=== PATIENT | male | born 1955 | race Caucasian/White ===

== ENCOUNTER 2024-01-20 07:21 | Day surgery (SDC) | payer OTHER ==
[2024-01-19 09:27] LABS: Absolute Eosinophils 0.3 K/uL (0-0.5); Absolute Lymphocytes (CBC) 1.1 K/uL (0.7-4.9); Absolute Monocytes 0.4 K/uL (0.1-1.3); Absolute Neutrophil 3.6 K/uL (1.8-8.0); Basophils % 0.8 % (0-1.3); Eosinophils % 4.8 % (0-4.4); Hemoglobin 13.4 g/dL (13.6-17.9); Lymphocytes % 19.7 % (15.3-44.8); MCH 32.1 pg (27.0-35.0); MCHC 34.2 g/dL (32.0-36.0); MCV 93.8 fL (80-100); MPV 8.3 fL (7.6-11.3); Neutrophils % 66.7 % (41.7-73.7); Nucleated Red Blood Cells % 0.1 % (0-0); Platelets 162 thou/uL (152-406); RBC Red Blood Cell Count 4.16 M/uL (4.33-5.43); Red Cell Distribution Width 14.3 % (12.1-15.2)
[2024-01-19 09:34] LABS: Anion Gap 7.9 mEq/L (5.0-15.0); Potassium 3.9 mEq/L (3.5-5.1)
--- NOTE | 2024-01-19 12:58 | RAD REPORT ---
EXAM DESCRIPTION: RAD - Chest Pa And Lat (2 Views) - 01/19/2024 9:20 am CLINICAL HISTORY: Pre op pending hernia repairs. Hypertension COMPARISON: No comparisons TECHNIQUE: PA and lateral views of the chest were obtained. FINDINGS: The lungs are clear. Heart size is normal and central vasculature is within normal limits. No pleural effusion or pneumothorax seen. No acute bony finding noted. IMPRESSION: No acute cardiopulmonary process.
[2024-01-20] MEDS: Ringers Lactate 1,000 ML IV ONE (07:40)
[2024-01-20] MEDS ORDERED: propofoL 200 MG/20 ML VIAL IV ONE (07:53)
[2024-01-20] MEDS ORDERED: MIDAZOLAM HCL 2 MG/2 ML INJ ONE (07:53)
[2024-01-20] MEDS ORDERED: dexAMETHasone 4 MG/ML VIAL ONE (07:53)
[2024-01-20] MEDS ORDERED: ONDANSETRON 4 MG/2 ML VIAL ONE (07:53)
[2024-01-20] MEDS ORDERED: LIDOCAINE 1% MPF 5 ML VIAL ONE (07:53)
[2024-01-20] MEDS ORDERED: FENTANYL CITR 100 MCG/2 ML ONE (07:54)
[2024-01-20] MEDS ORDERED: ROCURONIUM 50 MG/5 ML VIAL IV ONE (07:55)
[2024-01-20] MEDS: CEFAZOLIN SODIUM 1 GM/VIAL ONE (08:36)
[2024-01-20] MEDS ORDERED: EPHEDRINE SULF 50 MG/ML VIAL ONE (09:36)
[2024-01-20] MEDS ORDERED: NEOSTIGMINE 1 MG/ML -10 ML VIAL ONE (09:55)
[2024-01-20] MEDS ORDERED: GLYCOPYRROLATE 0.2 MG/ML SYR ONE (09:55)
--- NOTE | 2024-01-20 10:21 | P.BOP ---
Preoperative diagnosis: tender incarcerated bilateral inguinal hernias Postoperative diagnosis: same Primary procedure: 1. Open repair of Right inguinal hernia with mesh Secondary procedure: 2. Open repair of Left inguinal hernia with mesh Estimated blood loss: <10cc Specimen: hernia content Findings: as above Anesthesia: General Complications: None Implants: plug and sheet mesh large R amd medium L Transferred to: Recovery Room Condition: Good
[2024-01-20 10:37] VITALS: TEMP 97
[2024-01-20 11:13] VITALS: O2SAT 99
[2024-01-20] MEDS: CODEINE 30MG/APAP 300MG TAB ONE (11:48)
[2024-01-20] MEDS: TAMSULOSIN 0.4 MG SR CAP ONE (11:48)
[2024-01-20 13:34] VITALS: BP 126/72
--- NOTE | 2024-01-20 22:08 | OP ---
Date of Procedure: 01/20/2024 Surgeon: Rikki Perry MD Preoperative Diagnosis: Tender bilateral incarcerated inguinal hernias. Postoperative Diagnosis: Tender bilateral incarcerated inguinal hernias. Procedure: Open repair of right and left inguinal hernias with mesh. Anesthesia: General plus local. Estimated Blood Loss: Less than 10 cc. Specimen: Hernia content. Implant: A plug and sheet mesh, large on the right side, medium on the left side. Indications: This is the case of a 68-year-old patient with multiple abdominal surgeries, comes to [facility] with bilateral incarcerated inguinal hernias. We discussed with him different options after seeing all his previous surgeries and all his abdominal incisions. We decided it was little bit safer and convenient to do an open bilateral inguinal hernias. The benefits, alternatives, and risks were full y explained, which include, but not limited to infection, bleeding, damage to adjacent structures, an esthesia complication, recurrence, CA, and even . He also understands this may not relieve symp toms. He might need more than one surgical intervention. He also understands we may use mesh in myles t region, so pros and cons of mesh use were discussed with the patient. All the questions answered t o his satisfaction. He signed a consent. Description Of Procedure: The patient was brought to the operating room, placed in supine position. Anesthesia was without complication. Abdomen and inguinal regions were prepped and draped in the [facility] sterile fashion. A time-out was called. Local anesthesia was applied followed by sharp incision of the skin. Left side first incision was carried down to Maria C fascia until we found external obl ique aponeurosis and that was opened in the direction of the fibers. The ilioinguinal nerve, iliohyp ogastric nerve were identified and protected behind external oblique aponeurosis. [place] was placed around the spermatic cord. The hernia sac was identified. The lipoma of the cord was identified. The spermatic cord structures were skeletonized and protected. The lipoma of the cord was then ligat ed with 3-0 chromic. Hernia sac was imbricated and secured in place with a mesh plug, secured in shari ce with VersaTack. The mesh sheet was placed in the floor of the canal, securing that area secured t o the pubic tubercle, shelving edge of inguinal ligament and transversalis fascia and the tails of th at looped around the spermatic cord without strangulation. Area was inspected. No bleeding. At myles t moment, I probed the inguinal nerve, iliohypogastric nerve back into the inguinal canal. I removed the Corin[place], reconstructed the superficial inguinal ring with 3-0 Prolene, and then closed the exter nal oblique aponeurosis making sure the nerves were protected. The area was irrigated. Maria C fasci a was closed with 3-0 chromic and skin with margarette. Sponge count and instrument counts were correct . At that moment, we went to the opposite side where we made an incision in the right inguinal regio n. Incision was carried down to fascia, which was opened under direct vision. External oblique apon eurosis was identified, opened in direction of its fibers to connect to the superficial inguinal ring . The inguinal nerve, epigastric nerve protected behind external oblique aponeurosis. [place] was p laced around the spermatic cord. We have this case to repair the floor of the canal. So, what we di d is just protected spermatic cord structure at all time. We proceeded then to imbricate the hernia sac. We also dissected the lipoma of the cord once again protecting the cord structures including th e vas deferens. Then, after that, I placed a #1 Prolene on the pubic tubercle and moved forward the inguinal canal floor by approximating the transversalis fascia and shelving edge of inguinal ligament until the deep inguinal ring was reconstructed. Until that being in inguinal ring, we already had a large mesh plug in that region, secured in place with VersaTack. After that, I placed the mesh shee t on the floor of the canal securing that to the pubic tubercle, shelving edge of inguinal ligament, transversalis fascia, and the tails looped around the spermatic cord without strangulation. After th at, checked for hemostasis. No bleeding. Irrigation was done. Then, we brought the ilioinguinal ne rve, iliohypogastric nerve back into the inguinal canal, reconstructed superficial inguinal ring and closed the external oblique aponeurosis making sure the nerves were not included. Maria C fascia was closed with 3-0 chromic and skin with margarette. Sponge count, instrument counts were correct. The pa tient tolerated the procedure well. At the end of the case, testicles were within the scrotum. The patient was sent to recovery in stable condition. HM/MODL Voice ID: [id number] Report ID: [id number]
--- NOTE | 2024-01-21 07:56 | DS ---
Date of Discharge: 01/20/2024 Condition: Stable. Diagnosis: Tender incarcerated bilateral inguinal hernia. Procedures: Open repair of right inguinal hernia with mesh and open repair of left inguinal hernia w ith mesh. Disposition: Home. Activity: As tolerated. No heavy lifting. Plan: Follow up in my office in 1 week. Call for appointment [phone]. Keep area dry for 48 hours, then may shower. Cold compress to bilateral inguinal region for the next 24 hours. CRISTHIAN/JOSUE Voice ID: [id number] Report ID: [id number]
--- NOTE | 2024-01-21 16:51 | EKG ---
Test Date: 2024-01-19 Test Time: 08:55:07 Drill Grinder: MIGDALIA MEASUREMENT RESULTS: Intervals: Rate: 67 IA: 122 QRSD: 92 QT: 386 QTc: 407 [place]: P: 28 IA: 122 QRS: -23 T: 46 INTERPRETIVE STATEMENTS: Normal sinus rhythm Normal ECG No previous ECG available for comparison Electronically Signed On 01-21-24 16:44:19 CDT by Dionicio Fox
== END 2024-01-20 12:42 | disposition home or self-care (01) ==
LOC: OR 07:21
PROVIDERS: ATTEND Surgery
PROC: 0YUA0JZ Supplement Bilateral Inguinal Region with Synthetic Substitute, Open Approach (ICD-10-PCS; principal; 2024-01-20 09:15)
DX: K40.00 Bilateral inguinal hernia, with obstruction, without gangrene, not specified as recurrent (principal)
CPT/HCPCS: 93005; 85025; 80048; 36415; 71046; 49505; 49507; J2704; J1100; J2710; J2001; J2250; J3010; J2405; J7120; J0690; 88302